=== PATIENT | female | born 1975 | race Caucasian/White ===

== ENCOUNTER 2016-10-12 18:38 | Emergency (ER) | payer OTHER ==
[~2016-10-12] VITALS: Ht 157.5 cm; Wt 92.0 kg
[2016-10-12] MEDS ORDERED: LIDOCAINE HCL BUFFERED 1% 20 ML VIAL INJ ONE (20:00)
[2016-10-12] MEDS ORDERED: PERTUSS(ACELL),DIPH,TET VAC/PF 0.5 ML VIAL IM ONE (20:00)
[2016-10-12] MEDS ORDERED: BACITRACIN/POLYMYXIN B 15 GM OINTMENT TP ONE (21:15)
[2016-10-12 21:40] VITALS: BP 145/89
== END 2016-10-12 21:41 | disposition home or self-care (01) ==
LOC: EDBD 18:40 → EMS 18:40
DX: S61.412A Laceration without foreign body of left hand, initial encounter (principal); W45.8XXA Other foreign body or object entering through skin, initial encounter; Y93.89 Activity, other specified; Y99.8 Other external cause status; Y92.009 Unspecified place in unspecified non-institutional (private) residence as the place of occurrence of the external cause
CPT/HCPCS: 12001; 90471; 90715; 99283; J3490

== ENCOUNTER 2016-10-20 14:20 | Emergency (ER) | payer OTHER ==
[~2016-10-20] VITALS: Ht 152.4 cm; Wt 98.0 kg
[2016-10-20] MEDS ORDERED: BACI30OI10 TP (14:32)
[2016-10-20 17:00] VITALS: BP 118/82
== END 2016-10-20 17:37 | disposition home or self-care (01) ==
LOC: EMS 14:36
DX: Z48.02 Encounter for removal of sutures (principal)
CPT/HCPCS: 99281